=== PATIENT | female | born 1975 | race Caucasian/White ===

== ENCOUNTER 2023-11-19 12:58 | Observation (INO) ==
[2023-11-19] MEDS ORDERED: ceFAZolin 2 GM PREMIX 2 GM/50 ML BAG ONE (13:45)
[2023-11-19 14:32] LABS: Calcium 8.7 mg/dL (8.6-10.3); Creatinine, Serum 4.17 mg/dL (0.51-0.95); Potassium 4.4 mmol/L (3.5-5.0); eGFR CKD-EPI 12.5 (>60)
[2023-11-19] MEDS ORDERED: Levalbuterol 1.25MG/0.5ML NEB.SOL ONE (15:01)
[2023-11-19] MEDS: Levalbuterol 1.25MG/0.5ML NEB.SOL INH ONE (15:04)
[2023-11-19] MEDS ORDERED: Propofol 10 MG/ML 20 ML BTL ONE ×2 (15:21→16:04)
[2023-11-19] MEDS ORDERED: Heparin *DIALYSIS* ONLY 1,000 UNITS/ML VIAL ONE (15:21)
[2023-11-19] MEDS ORDERED: Bupivacaine 0.25% SDV 30 ML ONE (15:21)
[2023-11-19] MEDS ORDERED: fentaNYL 100 mcg/2 ml 50 MCG/ML VIAL ONE (15:23)
[2023-11-19] MEDS ORDERED: Midazolam 2 mg/2 ml VIAL 1 mg/ml 2 ml VIAL (2 mg) ONE (15:24)
[2023-11-19] MEDS ORDERED: Rocuronium 50 mg VIAL 10 mg/ml 5 ml VIAL (50 mg) ONE ×2 (15:26→16:05)
[2023-11-19] MEDS ORDERED: Lidocaine 2% PF 5 ML VIAL ONE (15:26)
[2023-11-19] MEDS ORDERED: Dexamethasone IV 4 MG/ML VIAL 1 ml VIAL ONE (16:23)
[2023-11-19] MEDS ORDERED: Ondansetron 4 mg VIAL 2 MG/ML 2 ml VIAL ONE (16:23)
[2023-11-19] MEDS ORDERED: Methylene Blue 1% (ANTIDOTE) 10 MG/ML 1 ML SDV VIAL IVPB ONE (17:08)
[2023-11-19] MEDS ORDERED: Ondansetron 4 mg VIAL 2 MG/ML 2 ml VIAL IV PRN (18:35)
[2023-11-19] MEDS: CMCS: NORETHINDRONE ACETATE 5 MG TAB (NF) PO SCH (20:51)
[2023-11-20] MEDS: Heparin 5000 UNITS/ML 1 mL VIAL SUBCUT SCH (00:33)
[2023-11-20 07:00] VITALS: BP 154/89
[2023-11-20] MEDS: Potassium Chlor 20 meq TAB.ER PO SCH (07:34)
== END 2023-11-20 08:29 | disposition home or self-care (01) ==
LOC: ICU 12:58 → OR 12:58
PROVIDERS: ADMIT Surgery; ATTEND Surgery